=== PATIENT | female | born 1955 | race Caucasian/White ===

== ENCOUNTER 2016-08-29 07:46 | Day surgery (SDC) | payer OTHER ==
[~2016-08-29] VITALS: Ht 172.7 cm; Wt 74.5 kg
[2016-08-29] VITALS (7 sets, daily range): BP systolic 95–144; BP diastolic 54–68; PULSE 68–85; RESP 16–20; TEMP 97.5–97.8; O2SAT 93–98
[~2016-08-29 07:46] MED LIST: ALBU0.08 NEB; AMLO10TA2 PO; ASPI81CH CHEW; AZIT250T3 PO; GABA300C5 PO; GLIP5TAB8 PO; HYDR-3533 PO; LEVO-168 PO; LISI10TA PO; METF850T PO; PROT40TA PO; TOPR100T PO; TRAD5TAB PO; VENTAER INH; ZANT150T2 PO; ZOCO40TA PO
[2016-08-29] MEDS ORDERED: [UNRECOGNIZED DRUG - OTHER] PO (08:13)
[2016-08-29] MEDS ORDERED: ALPR0.25 PO (08:13)
[2016-08-29] MEDS ORDERED: ZOFR4TAB PO (08:13)
[2016-08-29] MEDS ORDERED: SODIUM CHLOR 0.9% 1000 ML INJ 1,000 ML IV SCH (08:30)
[2016-08-29] MEDS ORDERED: MIDAZOLAM HCL 5 MG/5 ML VIAL ONE (09:34)
[2016-08-29] MEDS ORDERED: fentaNYL CITRATE 250 MCG/5 ML AMP ONE (09:34)
[2016-08-29] MEDS ORDERED: LIDOCAINE 1%/EPINEPHrine 1:100,000 SOLN 20 ML VIAL ONE (09:35)
[2016-08-29] MEDS ORDERED: oxyCODONE/ACETAMINOPHEN 5 MG/325 MG TAB PO PRN (11:15)
--- NOTE | 2016-08-29 11:36 | RADRPT ---
EXAM DATE/TIME: 08/29/2016 11:02 [facility] COMPARISON: CHEST PA & LAT, April 20, 2016, 15:19. INDICATIONS : Post right side biopsy. MEDICAL HISTORY : Carcinoma, lung. SURGICAL HISTORY : None. ENCOUNTER: Initial ACUITY: 1 day PAIN SCORE: 0/10 LOCATION: Bilateral chest FINDINGS: A single frontal expiratory view of the chest was performed. Dense opacification/volume loss in the r ight upper lobe. Surgical clips in the right upper hilar region suggest prior partial lobectomy. Righ t lower lung is well aerated and clear. The entire left lung appears to be clear as well. Left IJ Inf use-a-Port catheter with the tip projecting over the central venous system. Heart size is normal. Oss eous structures are intact. No pneumothorax. CONCLUSION: 1. No pneumothorax post biopsy. 2. Postsurgical changes in the right hemithorax with surgical clips in the right superior hilar regio n suggesting p previous lobectomy. 3. Dense opacification/volume loss in the right upper lobe. Remaining portions of the right lung and the entire left lung are clear. Arvind Herrera MD on August 29, 2016 at 11:31 Board Certified Radiologist. This report was verified electronically.
--- NOTE | 2016-08-29 13:43 | RADRPT ---
EXAM DATE/TIME: 08/29/2016 09:57 [facility] COMPARISON: No previous studies available for comparison. INDICATIONS : Right lung mass SEDATION TIME: 30 minutes BIOPSY SITE: Right lung MEDICATION(S): 1.) 3 mg midazolam (Versed) IV 2.) 125 mcg fentanyl (Sublimaze) IV DEVICE(S): 1.) 18 gauge Temno core biopsy needle MEDICAL HISTORY : Carcinoma, lung. Hypertension. Diabetes mellitus type 1. SURGICAL HISTORY : exploratory thorocotomy ENCOUNTER: Initial ACUITY: 1 day PAIN SCORE: 0/10 LOCATION: chest A total of two core specimen(s) were obtained and sent to the laboratory for pathologic evaluation. PROCEDURE: 1. CT guided lung biopsy. 2. Conscious sedation with continuous EKG and oximetry monitoring. 3. EKG and oximetry remained stable throughout the procedure. Prior to the procedure informed consent was obtained. Any appropriate prior imaging studies were rev iewed. Using automated exposure control and adjustment of the mA and/or kV according to patient size, radiation dose was kept as low as reasonably achievable to obtain optimal diagnostic quality images. The site was prepped in a sterile fashion. Full sterile technique was used, including cap, mask, urbano rile gloves and gown and a large sterile sheet. Hand hygiene and 2% chlorhexidine and/or betadine/al cohol prep was utilized per protocol for cutaneous antisepsis. The skin and subcutaneous tissues wer e infiltrated with local anesthetic solution. With CT guidance the previously identified target was localized. Biopsy was performed using the presc ribed needle as above. Adequate hemostasis was obtained with compression at the puncture site. Follow-up CT scan reveals no pneumothorax. Conscious sedation was performed with the prescribed dosages and duration as above in the presence of an independent trained radiology nurse to assist in the monitoring of the patient. EKG and oximetry remained stable throughout the procedure. The patient tolerated the procedure well and there were no complications. The patient was sent to Radiology Outpatient Unit in stable condition. CONCLUSION: Uncomplicated CT guided biopsy. Abdirizak Vanegas MD on August 29, 2016 at 13:41 Board Certified Radiologist. This report was verified electronically.
--- NOTE | 2016-08-29 13:45 | RADRPT ---
EXAM DATE/TIME: 08/29/2016 13:00 [facility] COMPARISON: CHEST EXPIRATION ONLY, August 29, 2016, 11:02. INDICATIONS : Post bx MEDICAL HISTORY : Carcinoma, lung. SURGICAL HISTORY : None. ENCOUNTER: Initial ACUITY: 1 day PAIN SCORE: 0/10 LOCATION: Bilateral chest FINDINGS: The cardiac silhouette is normal in transverse diameter. [id number]-s-[id number] is in place via left internal jugular approach with its tip in the superior vena cava. There is chronic finding loss in the right u pper lobe. There is no evidence of pneumothorax. CONCLUSION: 1. There is no evidence of pneumothorax. Abdirizak Vanegas MD on August 29, 2016 at 13:43 Board Certified Radiologist. This report was verified electronically.
== END 2016-08-29 14:30 | disposition home or self-care (01) ==
LOC: HRAD 07:46 → HRIP 07:48 → HRAD 14:30
PROVIDERS: ATTEND Internal Medicine Hematology & Oncology
DX: R91.8 Other nonspecific abnormal finding of lung field (principal); I10 Essential (primary) hypertension; E10.9 Type 1 diabetes mellitus without complications; Z79.4 Long term (current) use of insulin; Z85.118 Personal history of other malignant neoplasm of bronchus and lung
CPT/HCPCS: 32405; 71010; 77012; 88305; J2250; J3010